=== PATIENT | male | born 1955 | race Caucasian/White ===

== ENCOUNTER 2021-03-12 06:30 | Observation (INO) | payer MEDICARE ==
[2021-03-08 15:53] LABS: BASOPHILS % (AUTO) 0.3 % (0.0-5.0); HEMATOCRIT 43.8 % (42-54); LYMPHOCYTES % (AUTO) 32.5 % (21.0-51.0); MEAN CORPUSCULAR HEMOGLOBIN 28.8 pg (27.0-33.0); MEAN CORPUSCULAR HGB CONC 33.6 g/dL (32.0-36.0); MEAN CORPUSCULAR VOLUME 85.7 fL (79-99); MONOCYTES % (AUTO) 6.6 % (3.0-13.0); NEUTROPHILS % (AUTO) 57.3 % (40.0-77.0); PLATELET COUNT (AUTO) 218 K/uL (130-400); RED BLOOD CELL COUNT(AUTO) 5.11 MIL/uL (4.50-6.20); WHITE BLOOD COUNT (AUTO) 7.3 K/uL (4.8-10.8)
[2021-03-08 16:08] LABS: INR 1.04 (0.85-1.15); PROTHROMBIN TIME 11.3 SEC (9.6-11.6)
[2021-03-08 16:09] LABS: CREATININE 1.2 mg/dL (0.5-1.5); POTASSIUM 3.9 mmol/L (3.5-5.1)
[2021-03-08 16:10] LABS: PARTIAL THROMBOPLASTIN TIME 30.1 SEC (26.3-35.5)
[2021-03-12] VITALS (21 sets, daily range): BP systolic 100–143; BP diastolic 55–80
[~2021-03-12] VITALS: Ht 175.3 cm; Wt 106.1 kg
[~2021-03-12 06:30] MED LIST: ALFU10TA9 PO; ASPI-1443 PO; GLUC-236 PO; LOSA100T58 PO; MULT-1367 PO; NAPR220T57 PO; ROPIVICAINE 250MG+KETOROLAC 15MG+EPINEPHRINE 0.3+CLONIDINE 80 IV PRN; ROSU5TAB12 PO; cetrizine PO
[2021-03-12] MEDS ORDERED: LACTATED RINGERS 1000ML 1,000 ML IV ONE (06:47)
[2021-03-12] MEDS ORDERED: SUCCINYLCHOLINE 200MG/10ML SYR ONE (06:57)
[2021-03-12] MEDS ORDERED: SUCCINYLCHOLINE CHLORIDE 20 MG/ML 10 ML VIAL ONE (06:57)
[2021-03-12] MEDS ORDERED: LIDOCAINE PF 100MG/5ML (2%) SYRINGE 5ML ONE (06:57)
[2021-03-12] MEDS ORDERED: MIDAZOLAM HCL 1 MG/ML 2ML VIAL ONE (06:58)
[2021-03-12] MEDS ORDERED: GLYCOPYRROLATE 1 MG/5 ML SYRINGE ONE (06:58)
[2021-03-12] MEDS ORDERED: NEOSTIGMINE 5MG/5ML SYR IV ONE (06:58)
[2021-03-12] MEDS ORDERED: DEXAMETHASONE SOD PHOSPHATE 10MG/ML 1ML VIAL ONE (06:58)
[2021-03-12] MEDS ORDERED: ONDANSETRON 4MG INJ ONE (06:58)
[2021-03-12] MEDS ORDERED: PROPOFOL 10 MG/ML 20ML VIAL IV ONE ×2 (06:58→07:28)
[2021-03-12] MEDS ORDERED: FENTANYL CITRATE PF 50 MCG/1 ML 2ML VIAL ONE (06:59)
[2021-03-12] MEDS ORDERED: ROCURONIUM 10MG/1ML SYR 10 MG/ML ML ONE (06:59)
[2021-03-12] MEDS ORDERED: EPHEDRINE SULFATE 50 MG/ML AMPULE ONE (07:05)
[2021-03-12] MEDS ORDERED: TRANEXAMIC ACID 1000MG/10ML ONE (07:17)
[2021-03-12] MEDS ORDERED: CETI10TA57 PO (07:25)
[2021-03-12] MEDS ORDERED: FINA5TAB41 PO (07:25)
[2021-03-12] MEDS ORDERED: GABA300C PO (07:25)
[2021-03-12] MEDS: CEFAZOLIN SODIUM 1 GM VIAL IVP SCH ×4 (07:29→23:43)
[2021-03-12] MEDS ORDERED: ROPIVACAINE 0.5% 5MG/ML 30ML IJ ONE (07:33)
[2021-03-12] MEDS ORDERED: EPINEPHRINE PF 1MG AMP ONE (09:52)
[2021-03-12] MEDS ORDERED: PHENYLEPHRINE HCL 10 MG/ML 1ML VIAL IV ONE (09:53)
[2021-03-12] MEDS: ACETAMINOPHEN 500 MG TABLET PO SCH ×2 (11:00→17:16)
[2021-03-12] MEDS ORDERED: HYDROCODONE/ACETAMINOPHEN 5/325 MG TAB PO PRN (11:00)
[2021-03-12] MEDS ORDERED: ONDANSETRON 4MG INJ IVP PRN (11:00)
[2021-03-12] MEDS ORDERED: MORPHINE 4 MG SYG IVP PRN (11:00)
[2021-03-12] MEDS ORDERED: OXYCODONE HCL 5 MG TAB PO PRN (11:00)
[2021-03-12] MEDS: TRAMADOL HCL 50 MG TABLET PO SCH ×3 (12:00→23:43)
[2021-03-12] MEDS: 0.9%NACL 1000ML 1,000 ML IV SCH ×2 (12:28→20:53)
[2021-03-12] MEDS: CETIRIZINE HCL 5 MG TABLET PO SCH (12:29)
[2021-03-12] MEDS: FINASTERIDE 5 MG TABLET PO SCH (12:29)
[2021-03-12] MEDS: ALFUZOSIN 10 MG PO SCH (12:29)
[2021-03-12] MEDS ORDERED: CEFAZOLIN SODIUM 1 GM VIAL ONE (14:53)
[2021-03-12] MEDS: FAMOTIDINE 20MG TAB PO SCH (20:45)
[2021-03-12] MEDS: LOSARTAN 100 MG TABLET PO SCH (20:45)
[2021-03-12] MEDS: ASPIRIN 81 MG EC TAB PO SCH (20:46)
[2021-03-12] MEDS: GABAPENTIN 300 MG CAPSULE PO SCH (20:46)
[2021-03-13 00:07] VITALS: BP 97/50
[2021-03-13 04:09] VITALS: BP 117/60
[2021-03-13] MEDS: ACETAMINOPHEN 500 MG TABLET PO SCH ×3 (04:14→19:46)
[2021-03-13 04:27] LABS: HEMATOCRIT 36.9 % (42-54); MEAN CORPUSCULAR HGB CONC 33.1 g/dL (32.0-36.0); MEAN CORPUSCULAR VOLUME 87.9 fL (79-99); RED BLOOD CELL COUNT(AUTO) 4.2 MIL/uL (4.50-6.20); RED CELL DISTRIBUTION WIDTH 12.4 % (11.0-15.5); WHITE BLOOD COUNT (AUTO) 13.7 K/uL (4.8-10.8)
[2021-03-13 04:35] LABS: CREATININE 1.4 mg/dL (0.5-1.5); POTASSIUM 4.3 mmol/L (3.5-5.1)
[2021-03-13] MEDS: TRAMADOL HCL 50 MG TABLET PO SCH ×4 (06:04→23:13)
[2021-03-13] MEDS: 0.9%NACL 1000ML 1,000 ML IV SCH (07:00)
[2021-03-13 08:00] VITALS: BP 107/59
[2021-03-13] MEDS: ALFUZOSIN 10 MG PO SCH (09:00)
[2021-03-13] MEDS: POLYETHYLENE GLYCOL 3350 17 GM POWD.PACK PO SCH (09:23)
[2021-03-13] MEDS: FINASTERIDE 5 MG TABLET PO SCH (09:23)
[2021-03-13] MEDS: FAMOTIDINE 20MG TAB PO SCH ×2 (09:23→19:46)
[2021-03-13] MEDS: CETIRIZINE HCL 5 MG TABLET PO SCH (09:23)
[2021-03-13] MEDS: ASPIRIN 81 MG EC TAB PO SCH ×2 (09:23→19:46)
[2021-03-13 11:20] VITALS: BP 147/80
[2021-03-13] MEDS ORDERED: KETOROLAC 30MG VIAL (30MG/ML) IV PRN (17:00)
[2021-03-13 19:17] VITALS: BP 129/80
[2021-03-13] MEDS: LOSARTAN 100 MG TABLET PO SCH (19:46)
[2021-03-13] MEDS: GABAPENTIN 300 MG CAPSULE PO SCH (19:46)
[2021-03-13 23:59] VITALS: BP 134/71
[2021-03-14 03:54] VITALS: BP 125/66
[2021-03-14] MEDS: ACETAMINOPHEN 500 MG TABLET PO SCH (05:07)
[2021-03-14] MEDS: TRAMADOL HCL 50 MG TABLET PO SCH (05:08)
[2021-03-14 08:00] VITALS: BP 137/75
[2021-03-14] MEDS: ALFUZOSIN 10 MG PO SCH (09:00)
[2021-03-14] MEDS: POLYETHYLENE GLYCOL 3350 17 GM POWD.PACK PO SCH (09:00)
[2021-03-14] MEDS: FAMOTIDINE 20MG TAB PO SCH (09:30)
[2021-03-14] MEDS: CETIRIZINE HCL 5 MG TABLET PO SCH (09:30)
[2021-03-14] MEDS: FINASTERIDE 5 MG TABLET PO SCH (09:30)
[2021-03-14] MEDS: ASPIRIN 81 MG EC TAB PO SCH (09:31)
[2021-03-15] MEDS ORDERED: BISACODYL 10 MG SUPP.RECT RC PRN (11:00)
== END 2021-03-14 14:07 | disposition home or self-care (01) ==
LOC: DAH 06:30 → DAHIP 06:31 → DAH 06:31 → 4DH 12:10
PROVIDERS: ADMIT Orthopaedic Surgery; ATTEND Orthopaedic Surgery
DX: M17.12 Unilateral primary osteoarthritis, left knee (principal); Z20.822 Contact with and (suspected) exposure to COVID-19; I10 Essential (primary) hypertension; E66.9 Obesity, unspecified; N40.0 Benign prostatic hyperplasia without lower urinary tract symptoms; Z68.34 Body mass index [BMI] 34.0-34.9, adult; Z79.899 Other long term (current) drug therapy; Z98.890 Other specified postprocedural states
CPT/HCPCS: 27447; 36415 ×2; 80048 ×2; 85025; 85027; 85610; 85730; 87635; 87641; 96374; 96375; 96376; 97039 ×4; 97116 ×4; 97161; 97530 ×3; A4215; A4221; A4222; A4223; A4248; A4649 ×5; A4663; A4930; A5120; A6223; A6260; C1776; C9803; G0378 ×51; J0171 ×2; J0330 ×2; J0690 ×4; J0735; J1100; J1885 ×2; J2001; J2250; J2370; J2405; J2704; J2710; J2795 ×2; J3010; J3490 ×3; J7030 ×2; J7120